=== PATIENT | female | born 1985 | race Caucasian/White ===

== ENCOUNTER 2019-01-30 11:19 | Inpatient (IN) ==
[2019-01-30] MEDS ORDERED: ONDANSETRON 4 MG/2 ML VIAL IVP ONE (11:25)
[2019-01-30] MEDS ORDERED: MORPHINE SULFATE 4 MG/1 ML IVP ONE (11:26)
[2019-01-30] MEDS ORDERED: Sodium Chloride 0.9% 1,000 ML PRIMARY IV ONE (11:26)
[2019-01-30 11:50] LABS: VENOUS PH 7.45 (7.32-7.42)
[2019-01-30 12:03] LABS: BASOPHILS # (AUTO) 0.09 10*3/UL; BASOPHILS % (AUTO) 0.8 % (0-1); EOSINOPHILS # (AUTO) 0.16 10*3/UL; EOSINOPHILS % (AUTO) 1.4 % (0-8); Hematocrit [HCT] 45.2 % (37.0-47.0); Hemoglobin [HGB] 15.1 g/dL (12.0-16.0); MEAN CORPUSCULAR HGB CONC 33.4 g/dL (33-37); MEAN CORPUSCULAR VOLUME 89.3 FL (81-99); MEAN PLATELET VOLUME 9.6 FL (7.4-12.2); MONOCYTES # (AUTO) 0.58 10*3/UL (0.3-0.8); MONOCYTES % (AUTO) 5.1 % (5-15); NEUTROPHILS # (AUTO) 7.77 10*3/UL; NEUTROPHILS % (AUTO) 68.5 % (50-80); RED BLOOD COUNT 5.06 10^6/uL (4.20-5.40)
[2019-01-30 12:05] LABS: PLATELET MORPHOLOGY COMMENT NORMAL MORPHOLOGY (NORM); RBC MORPHOLOGY COMMENT NORMAL MORPHOLOGY (NORM); WBC MORPHOLOGY COMMENT NORMAL MORPHOLOGY (NORM)
[2019-01-30 12:08] LABS: BILIRUBIN,URINE NEGATIVE (NEG); CLARITY,URINE CLEAR (CLEAR); COLOR,URINE YELLOW (Y); GLUCOSE, URINE (UA) NEGATIVE (NEG); PH,URINE 7.5 (5.0-8.5); PROTEIN,URINE NEGATIVE (NEG); UROBILINOGEN,URINE 0.2 EU/dL (0.2)
[2019-01-30] MEDS ORDERED: KETOROLAC 15 MG/1 ML VIAL IVP ONE (12:08)
[2019-01-30 12:10] LABS: OCCULT BLOOD,URINE TRACE (NEG)
[2019-01-30 12:11] LABS: URINE SAMPLE TYPE CLEAN CATCH URINE
[2019-01-30 12:15] LABS: BLOOD UREA NITROGEN 13 mg/dL (7-22); BUN/CREATININE RATIO 18.57 (6-20); SERUM ALBUMIN 4.3 g/dL (3.5-4.8)
[2019-01-30 12:50] LABS: Erythrocyte Sediment Rate 2 MM/HR (0-20)
[2019-01-30] MEDS ORDERED: LORazepam 2 MG/1 ML VIAL IVP ONE (12:54)
[2019-01-30] MEDS ORDERED: HYDROmorphone 2 MG/1 ML IVP ONE (12:54)
[2019-01-30] MEDS ORDERED: Levofloxacin (Premix) 750 MG/150 ML PIGGYBACK IV ONE (13:59)
[2019-01-30] MEDS: HYDROmorphone 2 MG/1 ML IVP ONE ×2 (14:15→17:58)
[2019-01-30] MEDS: metroNIDAZOLE 500mg (Premix) 500 MG/100 ML BAG IV ONE ×2 (14:19→14:20)
[2019-01-30] MEDS ORDERED: Influenza 19-20 Vaccine (6mo+) 60 MCG/0.5 ML SYRINGE IM ONE (14:47)
[2019-01-30] MEDS ORDERED: CALCIUM CARBONATE 500 MG (TUMS) CHEWABLE TABLET PO PRN (15:43)
[2019-01-30] MEDS ORDERED: DOCUSATE 100 MG CAPSULE PO PRN (15:43)
[2019-01-30] MEDS ORDERED: LIDOCAINE W/ SODIUM BICARB 0.5 ML SYR SUBD PRN (15:43)
[2019-01-30] MEDS: HYDROmorphone 2 MG/1 ML IVP PRN ×3 (16:54→23:35)
[2019-01-30] MEDS: Lactated Ringers 1,000 ML PRIMARY IV SCH (16:56)
[2019-01-30] MEDS: NICOTINE 21 MG /DAY PATCH TRANSDERM SCH (17:38)
[2019-01-30] MEDS: ONDANSETRON 4 MG/2 ML VIAL IVP PRN (18:44)
[2019-01-30] MEDS: ACETAMINOPHEN 325 MG TABLET PO PRN (18:44)
[2019-01-30] MEDS: GABAPENTIN 400 MG CAPSULE PO SCH (20:36)
[2019-01-30] MEDS: Esomeprazole DR 20mg Capsule PO SCH (20:36)
[2019-01-30] MEDS: traZODone Tab 50 MG TAB PO SCH (20:37)
[2019-01-30] MEDS ORDERED: AmLODIPine Tab 5 MG TABLET PO SCH (21:00)
[2019-01-30] MEDS ORDERED: [UNRECOGNIZED DRUG - OTHER] PO SCH (21:00)
[2019-01-30] MEDS ORDERED: LISINOPRIL PO SCH (21:00)
[2019-01-30] MEDS ORDERED: LISINOPRIL 20 MG TABLET PO SCH (21:00)
[2019-01-30] MEDS ORDERED: HYDROCHLOROTHIAZIDE 12.5 MG CAPSULE PO SCH (21:00)
[2019-01-30] MEDS ORDERED: HYDROCHLOROTHIAZIDE PO SCH (21:00)
[2019-01-30] MEDS: metroNIDAZOLE 500mg (Premix) 500 MG/100 ML BAG IV SCH (22:05)
[2019-01-31] MEDS: HYDROmorphone 2 MG/1 ML IVP PRN ×3 (04:51→14:07)
[2019-01-31 05:16] LABS: BASOPHILS # (AUTO) 0.06 10*3/UL; BASOPHILS % (AUTO) 0.8 % (0-1); EOSINOPHILS # (AUTO) 0.24 10*3/UL; EOSINOPHILS % (AUTO) 3.3 % (0-8); Hematocrit [HCT] 38.2 % (37.0-47.0); Hemoglobin [HGB] 12.6 g/dL (12.0-16.0); LYMPHOCYTES # (AUTO) 2.93 10*3/uL; MEAN CORPUSCULAR VOLUME 91.2 FL (81-99); MEAN PLATELET VOLUME 9.6 FL (7.4-12.2); MONOCYTES % (AUTO) 9.8 % (5-15); NEUTROPHILS # (AUTO) 3.21 10*3/UL; NEUTROPHILS % (AUTO) 44.8 % (50-80); PLATELET MORPHOLOGY COMMENT NORMAL MORPHOLOGY (NORM); RBC MORPHOLOGY COMMENT NORMAL MORPHOLOGY (NORM); RED BLOOD COUNT 4.19 10^6/uL (4.20-5.40); WBC MORPHOLOGY COMMENT NORMAL MORPHOLOGY (NORM)
[2019-01-31] MEDS: ACETAMINOPHEN 325 MG TABLET PO PRN (05:16)
[2019-01-31] MEDS: Lactated Ringers 1,000 ML PRIMARY IV SCH ×2 (05:18→18:16)
[2019-01-31] MEDS: metroNIDAZOLE 500mg (Premix) 500 MG/100 ML BAG IV SCH ×3 (05:18→22:31)
[2019-01-31 05:30] LABS: BLOOD UREA NITROGEN 9 mg/dL (7-22); BUN/CREATININE RATIO 12.85 (6-20); SERUM ALBUMIN 3.2 g/dL (3.5-4.8)
[2019-01-31] MEDS ORDERED: HYDROmorphone 2 MG/1 ML IVP ONE (06:07)
[2019-01-31] MEDS ORDERED: tiZANidine Tab 4 MG TAB PO PRN (09:36)
[2019-01-31] MEDS: Esomeprazole DR 20mg Capsule PO SCH ×2 (09:39→21:04)
[2019-01-31] MEDS: GABAPENTIN 400 MG CAPSULE PO SCH ×2 (09:39→21:04)
[2019-01-31] MEDS: CITALOPRAM 20 MG TABLET PO SCH (09:40)
[2019-01-31] MEDS: ESTRADIOL 1 MG TABLET PO SCH (11:05)
[2019-01-31] MEDS: oxyCODONE/APAP 10/325 Tab 1 EACH TAB PO PRN ×3 (11:05→19:30)
[2019-01-31] MEDS: NICOTINE 21 MG /DAY PATCH TRANSDERM SCH (11:10)
[2019-01-31] MEDS ORDERED: Levofloxacin (Premix) 750 MG/150 ML PIGGYBACK IV SCH (15:00)
[2019-01-31] MEDS: cefTRIAXone Inj 2 GM in Sodium Chloride 0.9% 100 ML IV SCH (15:12)
[2019-01-31] MEDS ORDERED: Influenza 19-20 Vaccine (6mo+) 60 MCG/0.5 ML SYRINGE IM ONE (16:55)
[2019-01-31] MEDS: MORPHINE SULFATE 2 MG/1 ML IVP PRN ×2 (16:59→21:02)
[2019-01-31] MEDS: ONDANSETRON 4 MG/2 ML VIAL IVP PRN (17:00)
[2019-01-31] MEDS: traZODone Tab 50 MG TAB PO SCH (21:04)
[2019-02-01] MEDS: oxyCODONE/APAP 10/325 Tab 1 EACH TAB PO PRN ×4 (00:14→16:37)
[2019-02-01] MEDS: MORPHINE SULFATE 2 MG/1 ML IVP PRN ×2 (02:20→08:35)
[2019-02-01 05:22] LABS: Hematocrit [HCT] 36.1 % (37.0-47.0); Hemoglobin [HGB] 12.1 g/dL (12.0-16.0); MEAN CORPUSCULAR HGB CONC 33.5 g/dL (33-37); MEAN CORPUSCULAR VOLUME 91.2 FL (81-99); MEAN PLATELET VOLUME 10.1 FL (7.4-12.2); RED BLOOD COUNT 3.96 10^6/uL (4.20-5.40)
[2019-02-01] MEDS: metroNIDAZOLE 500mg (Premix) 500 MG/100 ML BAG IV SCH ×2 (05:40→14:43)
[2019-02-01] MEDS: Lactated Ringers 1,000 ML PRIMARY IV SCH ×2 (05:40→12:54)
[2019-02-01 05:45] LABS: BAND NEUTROPHILS % 0 % (0-10); MONOCYTES % (MANUAL) 7 % (0-12); NEUTROPHILS % (MANUAL) 59 % (50-80)
[2019-02-01 05:46] LABS: BASOPHILS % (MANUAL) 2 % (0-1); EOSINOPHILS % (MANUAL) 2 % (0-8); METAMYELOCYTES % 0 %; MYELOCYTES % 0 %; PLATELET MORPHOLOGY COMMENT NORMAL MORPHOLOGY (NORM); PROMYELOCYTES % 0 %; RBC MORPHOLOGY COMMENT NORMAL MORPHOLOGY (NORM); WBC MORPHOLOGY COMMENT NORMAL MORPHOLOGY (NORM)
[2019-02-01] MEDS: CITALOPRAM 20 MG TABLET PO SCH (08:34)
[2019-02-01] MEDS: Esomeprazole DR 20mg Capsule PO SCH (08:34)
[2019-02-01] MEDS: GABAPENTIN 400 MG CAPSULE PO SCH (08:34)
[2019-02-01] MEDS: ESTRADIOL 1 MG TABLET PO SCH (08:34)
[2019-02-01] MEDS: NICOTINE 21 MG /DAY PATCH TRANSDERM SCH (08:35)
[2019-02-01] MEDS: ONDANSETRON 4 MG/2 ML VIAL IVP PRN (12:24)
[2019-02-01] MEDS ORDERED: FLUCONAZOLE 100 MG TABLET PO ONE (12:32)
[2019-02-01 13:54] VITALS: BP 149/74; RESP 20; TEMP 98.2
[2019-02-01] MEDS: cefTRIAXone Inj 2 GM in Sodium Chloride 0.9% 100 ML IV SCH (15:26)
[2019-02-01 15:33] VITALS: O2SAT 93
== END 2019-02-01 17:06 | disposition home or self-care (01) | DRG 392 ==
LOC: ER 11:19 → MED/SURG 14:25
PROVIDERS: ADMIT Internal Medicine; ATTEND Internal Medicine